=== PATIENT | female | born 2000 | race African-American/Black ===

== ENCOUNTER 2020-10-04 21:34 | Emergency (ER) | payer OTHER ==
[~2020-10-04] VITALS: Ht 162.6 cm; Wt 76.2 kg
[2020-10-04 21:57] LABS: URINE PREG TEST NEGATIVE (NEGATIVE)
[2020-10-04] MEDS ORDERED: BACT800T5 PO (22:42)
[2020-10-04] MEDS ORDERED: BACTRIM 160MG/800MG DS TAB PO ONE (22:45)
[2020-10-04 23:01] VITALS: BP 142/75
== END 2020-10-04 23:03 | disposition home or self-care (01) ==
LOC: M ED 21:34 → EDSEX 21:34 → M ED 23:03
DX: N30.00 Acute cystitis without hematuria (principal)

== ENCOUNTER 2020-10-21 11:42 | Emergency (ER) | payer OTHER ==
[~2020-10-21] VITALS: Ht 162.6 cm; Wt 74.5 kg
[~2020-10-21 11:42] MED LIST: BACT800T5 PO
--- OUTSIDE RECORDS SUMMARY | 2020-10-21 11:49 | CCD ---
Author Author [facility] Organization [facility] Address Unknown Phone Unavailable Care Team Providers [employer] Name Role Phone GENO ENRIQUE MD Unavailable Unavailable GENO ENRIQUE MD Unavailable Unavailable Re-disclosure Warning The records that you are about to access may contain information from federally-assisted alcohol or drug abuse programs. If such information is present, then the following federally mandated warning applies: This information has been disclosed to you from records protected by federal confidentiality rules (42 CFR part 2). The federal rules prohibit you from making any further disclosure of this information unless further disclosure is expressly permitted by the written consent of the person to whom it pertains or as otherwise permitted by 42 CFR part 2. A general authorization for the release of medical or other information is NOT sufficient for this purpose. The Federal rules restrict any use of the information to criminally investigate or prosecute any alcohol or drug abuse patient.The records that you are about to access may contain highly sensitive health information, the redisclosure of which is protected by Article 27-F of the [facility] Public Health law. If you continue you may have access to information: Regarding HIV / AIDS; Provided by facilities licensed or operated by the [facility] Office of Mental Health; or Provided by the [facility] Office for People With Developmental Disabilities. If such information is present, then the following [facility] mandated warning applies: This information has been disclosed to you from confidential records which are protected by state law. State law prohibits you from making any further disclosure of this information without the specific written consent of the person to whom it pertains, or as otherwise permitted by law. Any unauthorized further disclosure in violation of state law may result in a fine or snf sentence or both. A general authorization for the release of medical or other information is NOT sufficient authorization for further disc losure. Encounters Encounter Providers Location Date Indications Data Source(s ) Outpatient Attender: GENO ENRIQUE MD 09/2019 01:12:00 PM EDT - 02/09/2020 02:12:00 PM EDT [facility] Patient discharged. Insurance Providers Payer name Policy type / Coverage type Policy ID Covered democrat ID Covered democrat's relationship to castaneda Policy Castaneda Plan Information [facility] ACTIVE DUTY [id number] SP [id number] [facility] HUMANA - O/P [id number] 18 [id number] Problems, Conditions, and Diagnoses Code Display Name Description Problem Type Effective Dates Data Source(s) N25421 Pain in left hip Pain in left hip Diagnosis 02/09/2020 01 :12:00 PM EDT [facility] [id number] Pain in right hip Pain in right hip Diagnosis 02/09/2020 01:12:00 PM EDT [facility] Results ID Date Data Source [id number] 02/10/2020 10:39:00 [place] [address] PHONE: [phone] FAX: [phone] Name .................. : THI Steve Acct Number.................. : [id number] ROOM. ................. : Number ................... : [id number] Stay type ............. : O/P Discharge Date......... ... : 02/09/20 Admit Date ....... .. : 02/09/20 Admit Phys .................... : IVA MUÑOZ Date of ....... : 2000 Family Phys ................... : UNKNOWN CO Phone .................. : [phone] Age ................................ : 19 Film# .................. .:[id number] Sex ................................. : F Unsigned transcriptions are preliminary reports and do not represent a medical or legal document MRI LOWER EXT ANY JT W CONT [id number] COMPLETE:02/09/20 14:45 [facility] 56436 (REASON FOR PROCESS: PAIN MRI OF THE LEFT HIP WITH CONTRAST: INDICATION: Pain. FINDINGS: There is no evidence of fracture or dislocation. There is no abnormal bone marrow signal visualized. The joint space is well preserved. No focal hyaline cartilage defect. There is no evidence of a labral tear. No muscular tear or contusion. No evidence of ligamentous injury or capsular injury. IMPRESSION: Essentially normal left hip MR arthrogram. Electronically Reviewed and Signed By Dieudonne Jensen M.D. , 02/10/20 10:39, [facility] Transcribe Initials: SUHA , Transcribe Date: 02/09/20 21:55, Dictation Date: Copy for: IVA LORA Copy for: [address] [place] [address] REC Page 1 of 1 Name Value Range Interpretation Code Description Data Latanya rce(s) Supporting Document(s) ID Date Data Source [id number] 02/10/2020 10:38:00 AM EDT [facility] [address] [place] [address] PHONE: [phone] FAX: [phone] Name .................. : THI Steve Acct Number.................. : [id number] ROOM. ................. : MR Number ................... : [id number] Stay type ............. : O/P Discharge Date......... ... : 02/09/20 Admit Date ....... .. : 02/09/20 Admit Phys .................... : ENRIQUE COR Date of ....... : 2000 Family Phys ................... : UNKNOWN CO Phone .................. : [phone] Age ................................ : 19 Film# .................. .:[id number] Sex ................................. : F Unsigned transcriptions are preliminary reports and do not represent a medical or legal document MRI LOWER EXT ANY JT W CONT R [id number] COMPLETE:02/09/20 15:06 [facility] 78864 (REASON FOR PROCESS: PAIN MRI OF THE RIGHT HIP WITH CONTRAST: INDICATION: Pain. FINDINGS: There is no evidence of fracture or dislocation. There is no abnormal bone marrow signal visualized. The joint space is well preserved. No focal hyaline cartilage defect. There is no evidence of a labral tear. No muscular tear or contusion. No evidence of ligamentous injury or capsular injury. IMPRESSION: Essentially normal right hip MR arthrogram. Electronically Reviewed and Signed By Dieudonne Jensen M.D. , 02/10/20 10:38, [facility] Transcribe Initials: DZ , Transcribe Date: 02/09/20 21:53, Dictation Date: Copy for: IVA LORA Copy for: [address] [place] [address] REC Page 1 of 1 Name Value Range Interpretation Code Description Data Latanya rce(s) Supporting Document(s) ID Date Data Source [id number] 02/10/2020 09:51:00 AM EDT [facility] [address] [place] [address] PHONE: [phone] FAX: [phone] Name .................. : THI Steve Acct Number.................. : [id number] ROOM. ................. : MR Number ................... : [id number] Stay type ............. : O/P Discharge Date......... ... : 02/09/20 Admit Date ....... .. : 02/09/20 Admit Phys .................... : ENRIQUE WANDA Date of ....... : 2000 Family Phys ................... : UNKNOWN CO Phone .................. : [phone] Age ................................ : 19 Film# .................. .:[id number] Sex ................................. : F Unsigned transcriptions are preliminary reports and do not represent a medical or legal document INJECTION FOR HIP ARTHROGRAM [id number] COMPLETE:02/09/20 13:20 81519 REASON FOR EXAM: PAIN INJECTION FOR HIP ARTHROGRAM [id number] COMPLETE:02/09/20 13:20 57215 REASON FOR EXAM: PAIN FLUOROSCOPIC EXAMINATION OF THE BILATERAL HIPS FOR ARTHROGRAM, 02/09/20: PROCEDURE: The benefits and risks of the examination were discussed with the patient. The patient has given informed consent for the procedure. A time out was performed confirming the bilateral hips are the proper hip for today's examination. The skin surface was marked using fluoroscopic guidance. The skin was prepped and dressed in normal sterile fashion. Superficial and deep Lidocaine administration was performed with a 25-gauge needle. A 22- gauge spinal needle was then placed and advanced under fluoroscopic guidance. The needle was passed into the joint space at which time iodinated contrast was administered to confirm proper placement. Approximately 5 cc of iodinated contrast was administered. Once the proper placement was confirmed, approximately 10 cc of 1:200 Gadolinium solution was administered. The needle was then removed. The skin was cleansed and bandaged. No complications were experienced during the procedure. Seven images were obtained and fluoro time was 6 seconds. Examination dictated by SARA Sheffield. Examination was reviewed with Gurwinder Bennett MD, radiologist at the time of this dictation. Page [address] of 2 [place] [address] PHONE: [phone] FAX: [phone] [facility] .................. : [id number] ROOM. ................. : Number ................... : [id number] Stay type ............. : O/P Discharge Date......... ... : 02/09/20 Admit Date ......... : 02/09/20 Admit Phys .................... : IVA MUÑOZ Date of ....... : 2000 Family Phys ................... : UNKNOWN CO Phone .................. : [phone] Age ................................ : 19 Film# .................. .:[id number] Sex ................................. : F Unsigned transcriptions are preliminary reports and do not represent a medical or legal document INJECTION FOR HIP ARTHROGRAM [id number] COMPLETE:02/09/20 13:20 34325 REASON FOR EXAM: PAIN INJECTION FOR HIP ARTHROGRAM 98544 COMPLETE:02/09/20 13:20 72083 REASON FOR EXAM: PAIN Electronically Reviewed and Signed By GURWINDER BENNETT MD , 02/10/20 09:51, [facility] Transcribe Initials: SSR, Transcribe Date: 02/09/20 14:05, Dictation Date: Copy for: IVA LORA Copy for: [address] [place] [address] REC Page 2 of 2 Name Value Range Interpretation Code Description Data Latanya rce(s) Supporting Document(s) ID Date Data Source [id number] 02/10/2020 09:51:00 AM EDT [facility] [address] [place] [address] PHONE: [phone] FAX: [phone] Name .................. : THI MILENA Steve Acct Number.................. : [id number] ROOM. ................. : MR Number ................... : [id number] Stay type ............. : O/P Discharge Date......... ... : 02/09/20 Admit Date ....... .. : 02/09/20 Admit Phys .................... : ENRIQUE COR Date of ....... : 2000 Family Phys ................... : UNKNOWN CO Phone .................. : [phone] Age ................................ : 19 Film# .................. .:[id number] Sex ................................. : F Unsigned transcriptions are preliminary reports and do not represent a medical or legal document INJECTION FOR HIP ARTHROGRAM [id number] COMPLETE:02/09/20 13:20 32973 REASON FOR EXAM: PAIN INJECTION FOR HIP ARTHROGRAM 22596 COMPLETE:02/09/20 13:20 76921 REASON FOR EXAM: PAIN FLUOROSCOPIC EXAMINATION OF THE BILATERAL HIPS FOR ARTHROGRAM, 02/09/20: PROCEDURE: The benefits and risks of the examination were discussed with the patient. The patient has given informed consent for the procedure. A time out was performed confirming the bilateral hips are the proper hip for today's examination. The skin surface was marked using fluoroscopic guidance. The skin was prepped and dressed in normal sterile fashion. Superficial and deep Lidocaine administration was performed with a 25-gauge needle. A 22- gauge spinal needle was then placed and advanced under fluoroscopic guidance. The needle was passed into the joint space at which time iodinated contrast was administered to confirm proper placement. Approximately 5 cc of iodinated contrast was administered. Once the proper placement was confirmed, approximately 10 cc of 1:200 Gadolinium solution was administered. The needle was then removed. The skin was cleansed and bandaged. No complications were experienced during the procedure. Seven images were obtained and fluoro time was 6 seconds. Examination dictated by SARA Sheffield. Examination was reviewed with Gurwinder Benentt MD, radiologist at the time of this dictation. Page 1 of 2 [facility] [address] [place] [address] PHONE: [phone] FAX: [phone] Name .................. : THI Steve Acct Number.................. : [id number] ROOM. ................. : MR Number ................... : [id number] Stay type ............. : O/P Discharge Date......... ... : 02/09/20 Admit Date ......... : 02/09/20 Admit Phys .................... : IVA MUÑOZ Date of ....... : 2000 Family Phys ................... : UNKNOWN CO Phone .................. : [phone] Age ................................ : 19 Film# .................. .:[id number] Sex ................................. : F Unsigned transcriptions are preliminary reports and do not represent a medical or legal document INJECTION FOR HIP ARTHROGRAM 60915 COMPLETE:02/09/20 13:20 09135 REASON FOR EXAM: PAIN INJECTION FOR HIP ARTHROGRAM 14115 COMPLETE:02/09/20 13:20 04482 REASON FOR EXAM: PAIN Electronically Reviewed and Signed By GURWINDER BENNETT MD , 02/10/20 09:51, [facility] Transcribe Initials: SSR, Transcribe Date: 02/09/20 14:05, Dictation Date: Copy for: IVA LORA Copy for: [address] [place] [address] REC Page 2 of 2 Name Value Range Interpretation Code Description Data Latanya rce(s) Supporting Document(s) Procedure
--- OUTSIDE RECORDS SUMMARY | 2020-10-21 12:26 | CCD ---
Author Author [facility] Organization [facility] Address Unknown Phone Unavailable Care Team Providers [employer] Name Role Phone GENO ENRIQUE MD Unavailable [...] is protected by Article 27-F of the [place] Public Health law. If you continue you may have access to information: Regarding HIV / AIDS; Provided by facilities licensed or operated by the [facility] Office of Mental Health; or Provided by the [facility] Office for People With Developmental Disabilities. If such information is present, then the following [facility] mandated warning applies: This information has [...] law may result in a fine or assisted sentence or both. A general authorization for the release of medical or other information is NOT sufficient authorization for further disc losure. Encounters Encounter Providers Location Date Indications Data Source(s ) Outpatient Attender: GENO ENRIQUE MD 09/2019 01:12:00 PM EDT - 02/09/2020 02:12:00 PM EDT [facility] Patient discharged. Insurance Providers Payer name Policy type / Coverage type Policy ID Covered libertarian ID Covered libertarian's relationship to castaneda Policy Castaneda Plan Information [facility] ACTIVE DUTY [id number] SP [id number] [facility] HUMA[employer] - O/P [id number] 18 [id number] Problems, Conditions, and Diagnoses Code Display Name Description Problem Type Effective Dates Data Source(s) [id number] Pain in left hip Pain in left hip Diagnosis 02/09/2020 01 :12:00 PM EDT [facility] [id number] Pain in right hip Pain in right hip Diagnosis 02/09/2020 01:12:00 PM EDT [facility] Results ID Date Data Source [id number] 02/10/2020 10:39:00 [place] [address] PHONE: [phone] FAX: [phone] [facility] .................. [facility] [id number] ROOM. ................. : Number ................... : [id number] Stay type ............. : O/P Discharge Date......... ... : 02/09/20 Admit Date ....... .. : 02/09/20 Admit Phys .................... : IVA MUÑOZ Date of ....... : 2000 Family Phys ................... : UNKNOWN CO Phone .................. : [phone] Age ................................ : 19 Film# .................. .:[id number] Sex ................................. : F Unsigned transcriptions are preliminary reports and do not represent a medical or legal document MRI LOWER EXT ANY JT W CONT [id number] COMPLETE:02/09/20 14:45 [facility] 36623 (REASON FOR PROCESS: PAIN MRI OF THE [...] By Dieudonne Jensen M.D. , 02/10/20 10:39, [facility] Transcribe Initials: SUHA , Transcribe Date: 02/09/20 21:55, Dictation Date: Copy for: IVA LORA Copy for: [address] [place] [address] REC Page 1 of 1 Name Value Range Interpretation Code Description Data Latanya rce(s) Supporting Document(s) ID Date Data Source [id number] 02/10/2020 10:38:00 AM EDT [facility] [address] [place] [address] PHONE: [phone] FAX: [phone] Name .................. : THI Steve Acct Number.................. : [id number] ROOM. ................. : MR Number ................... : [id number] Stay type ............. : O/P Discharge Date......... ... : 02/09/20 Admit Date ....... .. : 02/09/20 Admit Phys .................... : ENRIQUE COR Date of ....... : 2000 Family Phys ................... : UNKNOWN CO Phone .................. : [phone] Age ................................ : 19 Film# .................. .:[id number] Sex ................................. : F Unsigned transcriptions are preliminary reports and do not represent a medical or legal document MRI LOWER EXT ANY JT W CONT R [id number] COMPLETE:02/09/20 15:06 [facility] 83519 (REASON FOR PROCESS: PAIN MRI OF THE [...] Date: Copy for: IVA LORA Copy for: [address] [place] [address] REC Page 1 of 1 Name Value Range Interpretation Code Description Data Latanya rce(s) Supporting Document(s) ID Date Data Source [id number] 02/10/2020 09:51:00 AM EDT [facility] [address] [place] [address] PHONE: [phone] FAX: [phone] Name .................. : THI Steve Acct Number.................. : [id number] ROOM. ................. : MR Number ................... : [id number] Stay type ............. : O/P Discharge Date......... ... : 02/09/20 Admit Date ....... .. : 02/09/20 Admit Phys .................... : ENRIQUE COR Date of ....... : 2000 Family Phys ................... : UNKNOWN CO Phone .................. : [phone] Age ................................ : 19 Film# .................. .:[id number] Sex ................................. : F Unsigned transcriptions are preliminary reports and do not represent a medical or legal document INJECTION FOR HIP ARTHROGRAM [id number] COMPLETE:02/09/20 13:20 73816 REASON FOR EXAM: PAIN INJECTION FOR HIP ARTHROGRAM 61896 COMPLETE:02/09/20 13:20 59619 REASON FOR EXAM: PAIN FLUOROSCOPIC EXAMINATION OF [...] of this dictation. Page 1 of 2 [facility] [address] [place] [address] PHONE: [phone] FAX: [phone] Name .................. : [facility] : [id number] ROOM. ................. : Number ................... : [id number] Stay type ............. : O/P Discharge Date......... ... : 02/09/20 Admit Date ......... : 02/09/20 Admit Phys .................... : IVA MUÑOZ Date of ....... : 2000 Family Phys ................... : UNKNOWN CO Phone .................. : [phone] Age ................................ : 19 Film# .................. .:[id number] Sex ................................. : F Unsigned transcriptions are preliminary reports and do not represent a medical or legal document INJECTION FOR HIP ARTHROGRAM [id number] COMPLETE:02/09/20 13:20 90255 REASON FOR EXAM: PAIN INJECTION FOR HIP ARTHROGRAM [id number] COMPLETE:02/09/20 13:20 23730 REASON FOR EXAM: PAIN Electronically Reviewed and Signed By GURWINDER BENNETT MD , 02/10/20 09:51, [facility] Transcribe Initials: SSR, Transcribe Date: 02/09/20 14:05, Dictation Date: Copy for: IVA LORA Copy for: [address] [facility] REC Page 2 of 2 Name Value Range Interpretation Code Description Data Latanya rce(s) Supporting Document(s) ID Date Data Source [id number] 02/10/2020 09:51:00 AM EDT [facility] [address] [place] [address] PHONE: [phone] FAX: [phone] Name .................. : THI Steve Acct Number.................. : [id number] ROOM. ................. : MR Number ................... : [id number] Stay type ............. : O/P Discharge Date......... ... : 02/09/20 Admit Date ....... .. : 02/09/20 Admit Phys .................... : ENRIQUE COR Date of ....... : 2000 Family Phys ................... : UNKNOWN CO Phone .................. : [phone] Age ................................ : 19 Film# .................. .:[id number] Sex ................................. : F Unsigned transcriptions are preliminary reports and do not represent a medical or legal document INJECTION FOR HIP ARTHROGRAM [id number] COMPLETE:02/09/20 13:20 47055 REASON FOR EXAM: PAIN INJECTION FOR HIP ARTHROGRAM 56325 COMPLETE:02/09/20 13:20 79772 REASON FOR EXAM: PAIN FLUOROSCOPIC EXAMINATION OF [...] of this dictation. Page 1 of 2 [facility] [address] [place] [address] PHONE: [phone] FAX: [phone] Name .................. : THI Steve Acct Number.................. : [id number] ROOM. ................. : MR Number ................... : [id number] Stay type ............. : O/P Discharge Date......... ... : 02/09/20 Admit Date ......... : 02/09/20 Admit Phys .................... : ENRIQUE COR Date of ....... : 2000 Family Phys ................... : UNKNOWN CO Phone .................. : [phone] Age ................................ : 19 Film# .................. .:[id number] Sex ................................. : F Unsigned transcriptions are preliminary reports and do not represent a medical or legal document INJECTION FOR HIP ARTHROGRAM 12383 COMPLETE:02/09/20 13:20 97018 REASON FOR EXAM: PAIN INJECTION FOR HIP ARTHROGRAM 24403 COMPLETE:02/09/20 13:20 09347 REASON FOR EXAM: PAIN Electronically Reviewed and Signed By GURWINDER BENNETT MD , 02/10/20 09:51, [facility] Transcribe Initials: SSR, Transcribe Date: 02/09/20 14:05, Dictation Date: Copy for: IVA LORA Copy for: [facility] MED REC Page 2 of 2 Name Value Range Interpretation Code Description Data Latanya rce(s) Supporting Document(s) Procedure
[2020-10-21 14:50] LABS: CHLAMYDIA DNA AMPLIFICATION NEGATIVE (NEGATIVE); GC DNA AMPLIFICATION NEGATIVE (NEGATIVE)
[2020-10-21 14:54] VITALS: BP 133/76
[2020-10-21] MEDS ORDERED: CEPH500T PO (15:00)
== END 2020-10-21 15:10 | disposition home or self-care (01) ==
LOC: M ED 11:42
DX: O23.11 Infections of bladder in pregnancy, first trimester (principal); Z3A.00 Weeks of gestation of pregnancy not specified

== ENCOUNTER 2020-10-25 15:12 | Emergency (ER) | payer OTHER ==
[~2020-10-25] VITALS: Ht 162.6 cm; Wt 77.5 kg
[~2020-10-25 15:12] MED LIST changes: +CEPH500T PO
--- OUTSIDE RECORDS SUMMARY | 2020-10-25 15:28 | CCD ---
Author Author [facility] Organization [facility] Address Unknown Phone Unavailable Care Team Providers Care Operations Specialist Name Role Phone GENO ENRIQUE MD Unavailable [...] is protected by Article 27-F of the [place] State Public Health law. If you continue you may have access to information: Regarding HIV / AIDS; Provided by facilities licensed or operated by the [facility] Office of Mental Health; or Provided by the [facility] Office for People With Developmental Disabilities. If such information is present, then the following [facility] mandated warning applies: This information has [...] law may result in a fine or senior living sentence or both. A general authorization for the release of medical or other information is NOT sufficient authorization for further disc losure. Encounters Encounter Providers Location Date Indications Data Source(s ) Outpatient Attender: GENO ENRIQUE MD 09/2019 01:12:00 PM EDT - 02/09/2020 02:12:00 PM EDT [facility] Patient discharged. Medications Medication Brand Name Start Date Product Form Dose Route Admi nistrative Instructions Pharmacy Instructions Status Indications Reaction Description Data Source(s) Cephalexin 500 MG Oral Capsule CEPHALEXIN 10/21/2020 12:00:00 AM EST capsule 20 TAKE ONE CAPSULE BY MOUTH TWICE A DAY TAKE ONE CAPSULE BY MO UTH TWICE A DAY SOLD: 10/21/2020 [facility] Insurance Providers Payer name Policy type / Coverage type Policy ID Covered republican ID Covered republican's relationship to castaneda Policy Castaneda Plan Information [facility] [employer] [id number] SP [id number] [facility] [employer] - O/P [id number] 18 [id number] Problems, Conditions, and Diagnoses Code Display Name Description Problem Type Effective Dates Data Source(s) K79787 Pain in left hip Pain in left hip Diagnosis 02/09/2020 01 :12:00 PM EDT [facility] [id number] Pain in right hip Pain in right hip Diagnosis 02/09/2020 01:12:00 PM EDT [facility] Results ID Date Data Source [id number] 10/18/2020 01:49:00 PM EST [facility] Name Value Range Interpretation Code Description Data Latanya rce(s) Supporting Document(s) SARS coronavirus 2 RNA Not Detected [facility] [place] This lab was ordered by [facility] and reported by [facility]. ID Date Data Source [id number] 02/10/2020 10:39:00 AM EDT [facility] [address] [place] [address] PHONE: [phone] FAX: [phone] Name .................. : THI Steve Acct Number.................. : [id number] ROOM. ................. : MR Number ................... : [id number] Stay type ............. : O/P Discharge Date......... ... : 02/09/20 Admit Date ....... .. : 02/09/20 Admit Phys .................... : ENRIQUE COR Date of ....... : 2000 Family Phys ................... : UNKNOWN CO Phone .................. : [phone] Age ................................ : 19 Film# .................. .:[id number] Sex ................................. : F Unsigned transcriptions are preliminary reports and do not represent a medical or legal document MRI LOWER EXT ANY JT W CONT [id number] COMPLETE:02/09/20 14:45 [facility] [id number] (REASON FOR PROCESS: PAIN MRI OF THE [...] By Dieudonne Jensen M.D. , 02/10/20 10:39, [facility] Transcribe Initials: DZ , Transcribe Date: 02/09/20 21:55, Dictation Date: Copy for: IVA LORA Copy for: [facility] REC Page 1 of 1 Name Value Range Interpretation Code Description Data Latanya rce(s) Supporting Document(s) ID Date Data Source [id number] 02/10/2020 10:38:00 AM EDT [facility] [address] [place] [address] PHONE: [phone] FAX: [phone] Name .................. : THI Steve Acct Number.................. : [id number] ROOM. ................. : Number ................... : [id number] Stay type ............. : O/P Discharge Date......... ... : 02/09/20 Admit Date ....... .. : 02/09/20 Admit Phys .................... : ENRIQUE WADNA Date of ....... : 2000 Family Phys ................... : UNKNOWN CO Phone .................. : [phone] Age ................................ : 19 Film# .................. .:[id number] Sex ................................. : F Unsigned transcriptions are preliminary reports and do not represent a medical or legal document MRI LOWER EXT ANY JT W CONT R [id number] COMPLETE:02/09/20 15:06 [facility] [id number] (REASON FOR PROCESS: PAIN MRI OF THE [...] By Dieudonne Jensen M.D. , 02/10/20 10:38, [facility] Transcribe Initials: SUHA , Transcribe Date: 02/09/20 21:53, Dictation Date: Copy for: IVA LORA Copy for: [address] [place] [address] REC Page 1 of 1 Name Value Range Interpretation Code Description Data Latanya rce(s) Supporting Document(s) ID Date Data Source [id number] 02/10/2020 09:51:00 [place] [address] PHONE: [phone] FAX: [phone] Name .................. : THI Steve Acct Number.................. : [id number] ROOM. ................. : Number ................... : [id number] Stay type ............. : O/P Discharge Date......... ... : 02/09/20 Admit Date ....... .. : 02/09/20 Admit Phys .................... : IVA MUÑOZ Date of ....... : 2000 Family Phys ................... : UNKNOWN CO Phone .................. : [phone] Age ................................ : 19 Film# .................. .:[id number] Sex ................................. : F Unsigned transcriptions are preliminary reports and do not represent a medical or legal document INJECTION FOR HIP ARTHROGRAM [id number] COMPLETE:02/09/20 13:20 09001 REASON FOR EXAM: PAIN INJECTION FOR HIP ARTHROGRAM [id number] COMPLETE:02/09/20 13:20 10979 REASON FOR EXAM: PAIN FLUOROSCOPIC EXAMINATION OF [...] of this dictation. Page 1 of 2 [place] [address] PHONE: [phone] FAX: [phone] Name .................. : THI tSeve Acct Number.................. : [id number] ROOM. ................. : MR Number ................... : [id number] Stay type ............. : O/P Discharge Date......... ... : 02/09/20 Admit Date ......... : 02/09/20 Admit Phys .................... : IVA MUÑOZ Date of ....... : 2000 Family Phys ................... : UNKNOWN CO Phone .................. : [phone] Age ................................ : 19 Film# .................. .:[id number] Sex ................................. : F Unsigned transcriptions are preliminary reports and do not represent a medical or legal document INJECTION FOR HIP ARTHROGRAM [id number] COMPLETE:02/09/20 13:20 [id number] REASON FOR EXAM: PAIN INJECTION FOR HIP ARTHROGRAM [id number] COMPLETE:02/09/20 13:20 [id number] REASON FOR EXAM: PAIN Electronically Reviewed and Signed By GURWINDER BENNETT MD , 02/10/20 09:51, [facility] Transcribe Initials: SSR, Transcribe Date: 02/09/20 14:05, Dictation Date: Copy for: IVA GEON Copy for: [facility] REC Page 2 of 2 Name Value Range Interpretation Code Description Data Latanya rce(s) Supporting Document(s) ID Date Data Source [id number] 02/10/2020 09:51:00 AM EDT [facility] [address] [place] [address] PHONE: [phone] FAX: [phone] Name .................. : THI Steve Acct Number.................. : [id number] ROOM. ................. : MR Number ................... : [id number] Stay type ............. : O/P Discharge Date......... ... : 02/09/20 Admit Date ....... .. : 02/09/20 Admit Phys .................... : ENRIQUE COR Date of ....... : 2000 Family Phys ................... : UNKNOWN CO Phone .................. : [phone] Age ................................ : 19 Film# .................. .:[id number] Sex ................................. : F Unsigned transcriptions are preliminary reports and do not represent a medical or legal document INJECTION FOR HIP ARTHROGRAM [id number] COMPLETE:02/09/20 13:20 [id number] REASON FOR EXAM: PAIN INJECTION FOR HIP ARTHROGRAM [id number] COMPLETE:02/09/20 13:20 21964 REASON FOR EXAM: PAIN FLUOROSCOPIC EXAMINATION OF [...] of this dictation. Page 1 of 2 [place] [address] PHONE: [phone] FAX: [phone] Name .................. : THISHEREEN Steve Acct Number.................. : [id number] ROOM. ................. : MR Number ................... : [id number] Stay type ............. : O/P Discharge Date......... ... : 02/09/20 Admit Date ......... : 02/09/20 Admit Phys .................... : IVA MUÑOZ Date of ....... : 2000 Family Phys ................... : UNKNOWN CO Phone .................. : [phone] Age ................................ : 19 Film# .................. .:[id number] Sex ................................. : F Unsigned transcriptions are preliminary reports and do not represent a medical or legal document INJECTION FOR HIP ARTHROGRAM [id number] COMPLETE:02/09/20 13:20 31611 REASON FOR EXAM: PAIN INJECTION FOR HIP ARTHROGRAM [id number] COMPLETE:02/09/20 13:20 32347 REASON FOR EXAM: PAIN Electronically Reviewed and Signed By GURWINDER BENNETT MD , 02/10/20 09:51, [facility] Transcribe Initials: SSR, Transcribe Date: 02/09/20 14:05, Dictation Date: Copy for: ENRIQUE GENO Copy for: [facility] MED REC Page 2 of 2 Name Value Range Interpretation Code Description Data Latanya rce(s) Supporting Document(s) Procedure
--- OUTSIDE RECORDS SUMMARY | 2020-10-25 17:15 | CCD ---
Author Author [facility] Organization [facility] Address Unknown Phone Unavailable Care Team Providers Care Gate Agent Name Role Phone GENO ENRIQUE MD Unavailable [...] is protected by Article 27-F of the [place] State Public Health law. If you continue you may have access to information: Regarding HIV / AIDS; Provided by facilities licensed or operated by the [facility] Office of Mental Health; or Provided by the [facility] Office for People With Developmental Disabilities. If such information is present, then the following [facility] mandated warning applies: This information has [...] law may result in a fine or custodial sentence or both. A general authorization for the release of medical or other information is NOT sufficient authorization for further disc losure. Encounters Encounter Providers Location Date Indications Data Source(s ) Outpatient Attender: GENO ENRIQUE MD 09/2019 01:12:00 PM EDT - 02/09/2020 02:12:00 PM EDT [facility] Patient discharged. Medications Medication Brand Name Start [...] type / Coverage type Policy ID Covered constitution party ID Covered constitution party's relationship to castaneda Policy Castaneda Plan Information [facility] ACTIVE DUTY [id number] SP [id number] [facility] HUMANA - O/P [id number] 18 [id number] Problems, Conditions, and Diagnoses Code Display Name Description Problem Type Effective Dates Data Source(s) [id number] Pain in left hip Pain in left hip [facility] Pain in right hip Pain in right hip Diagnosis 02/09/2020 01:12:00 PM EDT [facility] Results ID Date Data Source [id number] 10/18/2020 01:49:00 PM EST [facility] Name Value Range Interpretation Code Description Data Latanya rce(s) Supporting Document(s) SARS coronavirus 2 RNA Not Detected [facility] [place] This lab was ordered by [facility] and reported by [facility]. ID Date Data Source [id number] 02/10/2020 10:39:00 AM EDT [facility] [address] [place] [address] PHONE: [phone] FAX: [phone] Name .................. : THI Steve Acct Number.................. : [id number] ROOM. ................. : MR Number ................... : [id number] Stay type ............. : O/P Discharge Date......... ... : 02/09/20 Admit Date ....... .. : 02/09/20 Admit Phys .................... : ENRIQUE COR Date of ....... : 2000 Family Phys ................... : UNKNOWN CO Phone .................. : [phone] Age ................................ : 19 Film# .................. .:[id number] Sex ................................. : F Unsigned transcriptions are preliminary reports and do not represent a medical or legal document MRI LOWER EXT ANY JT W CONT [id number] COMPLETE:02/09/20 14:45 [facility] [id number] (REASON FOR PROCESS: PAIN MRI OF THE [...] Copy for: IVA LORA Copy for: Parish [facility] REC Page 1 of 1 Name Value Range Interpretation Code Description Data Latanya rce(s) Supporting Document(s) ID Date Data Source [id number] 02/10/2020 10:38:00 [place] [address] PHONE: [phone] FAX: [phone] Name .................. : THI PALILLE Power Acct Number.................. : [id number] ROOM. ................. : Number ................... : [id number] Stay type ............. : O/P Discharge Date......... ... : 02/09/20 Admit Date ....... .. : 02/09/20 Admit Phys .................... : IVA MUÑOZ Date of ....... : 2000 Family Phys ................... : UNKNOWN CO Phone .................. : [phone] Age ................................ : 19 Film# .................. .:[id number] Sex ................................. : F Unsigned transcriptions are preliminary reports and do not represent a medical or legal document MRI LOWER EXT ANY JT W CONT R [id number] COMPLETE:02/09/20 15:06 [facility] [id number] (REASON FOR PROCESS: PAIN MRI OF THE [...] By Dieudonne Jensen M.D. , 02/10/20 10:38, [facility] Transcribe Initials: SUAH , Transcribe Date: 02/09/20 21:53, Dictation Date: Copy for: IVA LORA Copy for: [address] [place] [address] REC Page 1 of 1 Name Value Range Interpretation Code Description Data Latanya rce(s) Supporting Document(s) ID Date Data Source [id number] 02/10/2020 09:51:00 [place] [address] PHONE: [phone] FAX: [phone] Name .................. : THI Steve Acct Number.................. : [id number] ROOM. ................. : Number ................... : [id number] Stay type ............. : O/P Discharge Date......... ... : 02/09/20 Admit Date ....... .. : 02/09/20 Admit Phys .................... : IVA MUÑOZ Date of ....... : 2000 Family Phys ................... : UNKNOWN CO Phone .................. : [phone] Age ................................ : 19 Film# .................. .:[id number] Sex ................................. : F Unsigned transcriptions are preliminary reports and do not represent a medical or legal document INJECTION FOR HIP ARTHROGRAM [id number] COMPLETE:02/09/20 13:20 49099 REASON FOR EXAM: PAIN INJECTION FOR HIP ARTHROGRAM [id number] COMPLETE:02/09/20 13:20 90657 REASON FOR EXAM: PAIN FLUOROSCOPIC EXAMINATION OF [...] of this dictation. Page 1 of 2 [place] [address] PHONE: [phone] FAX: [phone] Name .................. : THI Steve Acct Number.................. : [id number] ROOM. ................. : MR Number ................... : [id number] Stay type ............. : O/P Discharge Date......... ... : 02/09/20 Admit Date ......... : 02/09/20 Admit Phys .................... : IVA MUÑOZ Date of ....... : 2000 Family Phys ................... : UNKNOWN CO Phone .................. : [phone] Age ................................ : 19 Film# .................. .:[id number] Sex ................................. : F Unsigned transcriptions are preliminary reports and do not represent a medical or legal document INJECTION FOR HIP ARTHROGRAM [id number] COMPLETE:02/09/20 13:20 59530 REASON FOR EXAM: PAIN INJECTION FOR HIP ARTHROGRAM [id number] COMPLETE:02/09/20 13:20 59072 REASON FOR EXAM: PAIN Electronically Reviewed and Signed By GURWINDER BENNETT MD , 02/10/20 09:51, [facility] Transcribe Initials: SSR, Transcribe Date: 02/09/20 14:05, Dictation Date: Copy for: ENRIQUE GENO Copy for: [facility] MED REC Page 2 of 2 Name Value Range Interpretation Code Description Data Latanya rce(s) Supporting Document(s) ID Date Data Source [id number] 02/10/2020 09:51:00 AM EDT [facility] [address] [place] [address] PHONE: [phone] FAX: [phone] Name .................. : THI Steve Acct Number.................. : [id number] ROOM. ................. : MR Number ................... : [id number] Stay type ............. : O/P Discharge Date......... ... : 02/09/20 Admit Date ....... .. : 02/09/20 Admit Phys .................... : ENRIQUE COR Date of ....... : 2000 Family Phys ................... : UNKNOWN CO Phone .................. : [phone] Age ................................ : 19 Film# .................. .:[id number] Sex ................................. : F Unsigned transcriptions are preliminary reports and do not represent a medical or legal document INJECTION FOR HIP ARTHROGRAM [id number] COMPLETE:02/09/20 13:20 26768 REASON FOR EXAM: PAIN INJECTION FOR HIP ARTHROGRAM [id number] COMPLETE:02/09/20 13:20 55542 REASON FOR EXAM: PAIN FLUOROSCOPIC EXAMINATION OF [...] of this dictation. Page 1 of 2 [place] [address] PHONE: [phone] FAX: [phone] Name .................. : THISHEREEN Steve Acct Number.................. : [id number] ROOM. ................. : MR Number ................... : [id number] Stay type ............. : O/P Discharge Date......... ... : 02/09/20 Admit Date ......... : 02/09/20 Admit Phys .................... : VIA MUÑOZ Date of ....... : 2000 Family Phys ................... : UNKNOWN CO Phone .................. : [phone] Age ................................ : 19 Film# .................. .:[id number] Sex ................................. : F Unsigned transcriptions are preliminary reports and do not represent a medical or legal document INJECTION FOR HIP ARTHROGRAM [id number] COMPLETE:02/09/20 13:20 11692 REASON FOR EXAM: PAIN INJECTION FOR HIP ARTHROGRAM [id number] COMPLETE:02/09/20 13:20 77397 REASON FOR EXAM: PAIN Electronically Reviewed and Signed By GURWINDER BENNETT MD , 02/10/20 09:51, [facility] Transcribe Initials: SSR, Transcribe Date: 02/09/20 14:05, Dictation Date: Copy for: IVA LORA Copy for: [facility] MED REC Page 2 of 2 Name Value Range Interpretation Code Description Data Latanya rce(s) Supporting Document(s) Procedure
[2020-10-25 17:50] LABS: BASO % 0.4 % (0.0-1.0); EOS # 0.1 10^3/uL (0.0-0.5); EOS % 0.6 % (0.0-3.0); HEMATOCRIT 37.8 % (36.0-47.0); HEMOGLOBIN 12.2 g/dl (12.0-15.5); LYMPH # 1.7 10^3/uL (1.5-5.0); LYMPH % 20.6 % (24.0-44.0); MEAN CORPUSCULAR HEMOGLOBIN 28.4 pg (27.0-33.0); MEAN CORPUSCULAR HGB CONC 32.3 g/dl (32.0-36.5); MEAN CORPUSCULAR VOLUME 87.9 fl (80.0-96.0); MONO # 0.6 10^3/uL (0.0-0.8); MONO % 7.5 % (0.0-8.0); NEUTROPHILS % 70.5 % (36.0-66.0); PLATELET COUNT, AUTOMATED 257 10^3/uL (150-450); WHITE BLOOD COUNT 8.5 10^3/uL (4.0-10.0)
[2020-10-25 19:20] VITALS: BP 128/70
== END 2020-10-25 19:21 | disposition home or self-care (01) ==
LOC: M ED 15:12
DX: R10.30 Lower abdominal pain, unspecified (principal); Y04.8XXA Assault by other bodily force, initial encounter; Y92.9 Unspecified place or not applicable; Y93.9 Activity, unspecified; Y99.9 Unspecified external cause status

== ENCOUNTER 2020-11-23 18:57 | Emergency (ER) | payer OTHER ==
[~2020-11-23] VITALS: Ht 162.6 cm; Wt 79.7 kg
[2020-11-23 20:22] LABS: HEMATOCRIT 36.4 % (36.0-47.0); HEMOGLOBIN 11.8 g/dl (12.0-15.5); MEAN CORPUSCULAR HEMOGLOBIN 28.9 pg (27.0-33.0); MEAN CORPUSCULAR HGB CONC 32.4 g/dl (32.0-36.5); PLATELET COUNT, AUTOMATED 231 10^3/uL (150-450); RED BLOOD COUNT 4.09 10^6/uL (4.00-5.40)
[2020-11-23 20:47] LABS: HCG, SERUM QUALITATIVE POSITIVE (NEGATIVE)
[2020-11-23 21:02] LABS: ACETAMINOPHEN LEVEL < 2.0 UG/ML (10.0-30.0); ALBUMIN 3.7 GM/DL (3.2-5.2); ALT/SGPT 10 U/L (12-78); BILIRUBIN,DIRECT < 0.1 MG/DL (0.0-0.2); BILIRUBIN,TOTAL 0.2 MG/DL (0.2-1.0); BLOOD UREA NITROGEN 9 MG/DL (7-18); CALCIUM LEVEL 8.9 MG/DL (8.5-10.1); CARBON DIOXIDE LEVEL 25 MEQ/L (21-32); CHLORIDE LEVEL 105 MEQ/L (98-107); CREATININE FOR GFR 0.58 MG/DL (0.55-1.30); ETHYL ALCOHOL (ETHANOL) < 0.003 % (0.000-0.010); GLUCOSE, FASTING 92 MG/DL (70-100); POTASSIUM SERUM 3.8 MEQ/L (3.5-5.1); SALICYLATE LEVEL < 1.7 MG/DL (5.0-30.0); SODIUM LEVEL 135 MEQ/L (136-145)
[2020-11-23 21:50] VITALS: BP 125/70
== END 2020-11-23 21:50 | disposition home or self-care (01) ==
LOC: M ED 18:57
DX: O99.341 Other mental disorders complicating pregnancy, first trimester (principal); F33.9 Major depressive disorder, recurrent, unspecified; Z3A.10 10 weeks gestation of pregnancy

== ENCOUNTER 2020-12-29 09:35 | Emergency (ER) | payer OTHER ==
[~2020-12-29] VITALS: Ht 152.4 cm; Wt 79.9 kg
[2020-12-29] MEDS ORDERED: PREN1CHW6 PO (10:23)
[2020-12-29] MEDS ORDERED: BACITRACIN OINTMENT 30GM TUBE TOP STA (11:17)
[2020-12-29] MEDS ORDERED: BACI500O21 TOP (11:24)
[2020-12-29 11:36] VITALS: BP 116/66
== END 2020-12-29 12:12 | disposition home or self-care (01) ==
LOC: M ED 09:35
DX: O99.712 Diseases of the skin and subcutaneous tissue complicating pregnancy, second trimester (principal); L08.9 Local infection of the skin and subcutaneous tissue, unspecified; Z3A.15 15 weeks gestation of pregnancy

== ENCOUNTER 2021-01-01 16:05 | Emergency (ER) | payer OTHER ==
[~2021-01-01] VITALS: Ht 162.6 cm; Wt 76.8 kg
[~2021-01-01 16:05] MED LIST changes: +BACI500O21 TOP; +PREN1CHW6 PO
[2021-01-01 16:36] LABS: APPEARANCE, URINE CLEAR (CLEAR); BACTERIA, URINE AUTO NEGATIVE (NEGATIVE); BILIRUBIN, URINE AUTO NEGATIVE (NEGATIVE); BLOOD, URINE BLOOD NEGATIVE (NEGATIVE); COLOR, URINE YELLOW (YELLOW); GLUCOSE, URINE (UA) AUTO NEGATIVE (NEGATIVE); KETONE, URINE AUTO NEGATIVE (NEGATIVE); LEUKOCYTE ESTERASE, URINE AUTO TRACE (NEGATIVE); MUCUS, URINE SMALL (NEGATIVE); NITRITE, URINE AUTO NEGATIVE (NEGATIVE); PROTEIN, URINE AUTO NEGATIVE (NEGATIVE); RBC, URINE AUTO 0 /HPF (0-3); SPECIFIC GRAVITY URINE AUTO 1.025 (1.002-1.035); SQUAMOUS EPITHELIAL CELL UR AU 1 /HPF (0-6); UROBILINOGEN, URINE AUTO 0.2 mg/dL (0.0-2.0); WBC, URINE AUTO 18 /HPF (0-3)
[2021-01-01 18:38] LABS: CHLAMYDIA DNA AMPLIFICATION NEGATIVE (NEGATIVE); GC DNA AMPLIFICATION NEGATIVE (NEGATIVE)
[2021-01-01] MEDS ORDERED: MACR100C43 PO (19:05)
[2021-01-01] MEDS ORDERED: NITROFURANTOIN (MACROBID) 100 MG CAP PO ONE (19:05)
[2021-01-01 19:06] VITALS: BP 122/71
== END 2021-01-01 19:10 | disposition home or self-care (01) ==
LOC: M ED 16:05
DX: O23.40 Unspecified infection of urinary tract in pregnancy, unspecified trimester (principal); R30.0 Dysuria; Z3A.00 Weeks of gestation of pregnancy not specified

== ENCOUNTER 2021-02-09 19:32 | Outpatient (CLI) | payer OTHER ==
[~2021-02-09] VITALS: Ht 162.6 cm; Wt 77.2 kg
[~2021-02-09 19:32] MED LIST changes: +MACR100C43 PO
[2021-02-09 19:49] VITALS: BP 113/65
--- NOTE | 2021-02-09 20:39 | IPNPDOC ---
Text Note Date of Service The patient was seen on 02/09/21. NOTE HPI: Mrs. Amanda Anna is a 20-year-old G1 at 21w3d ega, by LMP consistent with first trimester ultrasound, with PNC c/b Frequent UTIs who presents to rule-out labor. Mrs. Anna presents reporting progressively worsening pain that she attributes to her hip bursitis. However, over the course of the day she has noticed lower abdominal/pelvic discomfort and dysuria. No exacerbating or relieving factors have been identified. The patient denies leakage of fluid and vaginal bleeding. She has not started feeling the baby move at this point in her . Denies urinary frequency/hematuria, vaginal itching/burning sensations, vaginal discharge, or fevers/chills. Past Medical History: - Hip bursitis Past Surgical History: - Negative. Medications: - vitamins. Allergies: - No Known Drug Allergies. OB History: - G1: current partner, spontaneous conception. 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 PHYSICAL EXAMINATION Vital signs: normotensive, afebrile. General: Awake, alert and oriented 3; No apparent distress. Abdomen: Gravid, soft, nondistended, nontender to palpation. Back: No CVA tenderness Lower Extremities: no clubbing, cyanosis or edema. Sterile Speculum Exam: cervix was visibly closed, with no vaginal bleeding or pooling of fluid. Foul smelling yellow/green discharge noted within the vault NST: Baseline 125 bpm, moderate variability [place]: No uterine contractions. Labs: UA: Negative Leukocyte Esterase; Negative Nitrites; Negative Urine Bacteria; + Ketones UCx: Pending NIECY: No budding hyphae or yeast Wet Prep: Multiple clue cells, no Trichomonas present. Gonorrhea/Chlamydia/Trich NAAT: Pending Assessment: 20-year-old 1 at 21w3d ega with evidence of vaginitis & dehydration. Will initiate treatment for vaginitis. Will po hydrate the patient. Plan: Flagyl (metronidazole) 500 mg by mouth twice a day 7 days for bacterial vaginosis. Patient is to follow-up at her next regularly scheduled OB appointment. - Return precautions were reviewed with the couple All questions answered. 30 minutes spent in counseling. 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 Feb 09, 2021 20:39
== END 2021-02-09 20:49 | disposition home or self-care (01) ==
LOC: M LDO 19:32
PROVIDERS: ATTEND Obstetrics & Gynecology Reproductive Endocrinology
DX: O23.593 Infection of other part of genital tract in pregnancy, third trimester (principal); Z3A.21 21 weeks gestation of pregnancy; M70.70 Other bursitis of hip, unspecified hip; O26.893 Other specified pregnancy related conditions, third trimester
CPT/HCPCS: 81001; 87490; 87590; 87661; G0378; G0463

== ENCOUNTER 2021-03-14 17:46 | Emergency (ER) | payer OTHER ==
[~2021-03-14] VITALS: Ht 162.6 cm; Wt 80.4 kg
[2021-03-14] MEDS ORDERED: MULTTAB20 PO (19:19)
[2021-03-14] MEDS ORDERED: MACR100C43 PO (19:24)
[2021-03-14 19:42] LABS: HEMATOCRIT 32.2 % (36.0-47.0); HEMOGLOBIN 10.5 g/dl (12.0-15.5); MEAN CORPUSCULAR HEMOGLOBIN 29.3 pg (27.0-33.0); MEAN CORPUSCULAR HGB CONC 32.6 g/dl (32.0-36.5); MEAN CORPUSCULAR VOLUME 89.9 fl (80.0-96.0); PLATELET COUNT, AUTOMATED 231 10^3/uL (150-450); RED BLOOD COUNT 3.58 10^6/uL (4.00-5.40); WHITE BLOOD COUNT 8.7 10^3/uL (4.0-10.0)
[2021-03-14 20:13] LABS: AMPHETAMINES LEVEL URINE NEGATIVE (NEGATIVE); BARBITURATES URINE NEGATIVE (NEGATIVE); BENZODIAZEPINES URINE NEGATIVE (NEGATIVE); CANNABINOIDS URINE NEGATIVE (NEGATIVE); COCAINE METABOLITE URINE NEGATIVE (NEGATIVE); METHADONE URINE NEGATIVE (NEGATIVE); OPIATES URINE NEGATIVE (NEGATIVE); PHENCYCLIDINE URINE NEGATIVE (NEGATIVE)
[2021-03-14 20:24] LABS: ACETAMINOPHEN LEVEL < 2.0 UG/ML (10.0-30.0); ALBUMIN 3.4 GM/DL (3.2-5.2); ALT/SGPT 11 U/L (12-78); BILIRUBIN,DIRECT < 0.1 MG/DL (0.0-0.2); BILIRUBIN,TOTAL 0.3 MG/DL (0.2-1.0); BLOOD UREA NITROGEN 8 MG/DL (7-18); CALCIUM LEVEL 8.7 MG/DL (8.5-10.1); CARBON DIOXIDE LEVEL 25 MEQ/L (21-32); CHLORIDE LEVEL 107 MEQ/L (98-107); CREATININE FOR GFR 0.37 MG/DL (0.55-1.30); ETHYL ALCOHOL (ETHANOL) < 0.003 % (0.000-0.010); GLUCOSE, FASTING 67 MG/DL (70-100); SALICYLATE LEVEL < 1.7 MG/DL (5.0-30.0); SODIUM LEVEL 137 MEQ/L (136-145); THYROID STIMULATING HORMONE 0.869 uIU/ML (0.463-3.98); TOTAL PROTEIN 6.8 GM/DL (6.4-8.2)
[2021-03-14 21:07] LABS: HCG, SERUM QUALITATIVE POSITIVE (NEGATIVE)
[2021-03-15 09:15] VITALS: BP 122/52
== END 2021-03-15 09:17 | disposition home or self-care (01) ==
LOC: M ED 17:46
DX: O99.342 Other mental disorders complicating pregnancy, second trimester (principal); F43.21 Adjustment disorder with depressed mood; Z3A.27 27 weeks gestation of pregnancy

== ENCOUNTER 2021-04-14 18:36 | Emergency (ER) | payer OTHER ==
[~2021-04-14] VITALS: Ht 162.6 cm; Wt 81.4 kg
[~2021-04-14 18:36] MED LIST changes: +MULTTAB20 PO
[2021-04-14] MEDS ORDERED: NITR100C2 (18:51)
[2021-04-14] MEDS ORDERED: FERR325T18 (18:51)
[2021-04-14 21:54] VITALS: BP 131/64
== END 2021-04-14 22:10 | disposition home or self-care (01) ==
LOC: M ED 18:36
DX: O99.513 Diseases of the respiratory system complicating pregnancy, third trimester (principal); J06.9 Acute upper respiratory infection, unspecified; Z20.822 Contact with and (suspected) exposure to COVID-19; Z3A.30 30 weeks gestation of pregnancy
CPT/HCPCS: 99283; U0003

== ENCOUNTER 2021-04-19 15:37 | Outpatient (CLI) | payer OTHER ==
[~2021-04-19] VITALS: Ht 162.6 cm; Wt 82.0 kg
[~2021-04-19 15:37] MED LIST changes: +FERR325T18; +NITR100C2
[2021-04-19] MEDS ORDERED: HOME MED LIST COMPLETE! XX SCH (16:00)
[2021-04-19 16:19] VITALS: BP 125/67
--- NOTE | 2021-04-19 17:31 | IPNPDOC ---
Obstetrical Progress Note Date of Service Apr 19, 2021 Subjective 20 yo g1 @ 31w2d who presents complaining of uti symptoms with burning when she voids, urgency anf frequency. reports that she has hx of reccurent UTI and was told to take macrobid every day until she delivers. reports that after her 28 week appointment someone called her and told her to stop taking microbid and they would give her a new presciption for a different drug, but when she went to pick it up these was nothing at the harmacy. patient reports that she then went on vacation out of town for 2 weeks and did not take any meciation. when she returned she started having UTI symptoms and she resumed taking the macrobid once a day. she has been doing that now for a week and she continues to have the symptoms. she denies an fevers, chills, nausea or vomiting. she has no other concerns. FHT: 145, MOD KARIS,+Accels--CAT I tracing SVE: DEFFERED [place]: no contractions labs ua and UC: sent EXAM Normal vitals no suprapubic or CVA tenderness A/P 20 yo g1 @ 31w2d who presents complaining of uti symptoms after skin two weeks of her prophylactic dose. hemodynamically stable. normal vitals and reactive NST. WILL Sent home on macrobid 100mg BID FOR 7 DAays, then can go back on daily macrobid for supression. will await UC and will change antibioics as indicated by the the culture. f/u with DANIEL jansen previously scheduled. Objective Vital Signs Date Time Temp Pulse Resp B/P (MAP) Pulse Ox O2 Delivery O2 Flow Rate FiO2 04/19/21 16:19 97.4 70 18 125/67 (86) Room Air OMKAR ABEL MD Apr 19, 2021 17:31
[2021-04-19] MEDS ORDERED: MACR100C43 PO (17:34)
[2021-04-19 17:36] LABS: APPEARANCE, URINE CLEAR (CLEAR); BACTERIA, URINE AUTO NEGATIVE (NEGATIVE); BILIRUBIN, URINE AUTO NEGATIVE (NEGATIVE); BLOOD, URINE BLOOD NEGATIVE (NEGATIVE); COLOR, URINE YELLOW (YELLOW); GLUCOSE, URINE (UA) AUTO NEGATIVE (NEGATIVE); KETONE, URINE AUTO NEGATIVE (NEGATIVE); LEUKOCYTE ESTERASE, URINE AUTO 1+ (NEGATIVE); MUCUS, URINE SMALL (NEGATIVE); NITRITE, URINE AUTO NEGATIVE (NEGATIVE); PROTEIN, URINE AUTO NEGATIVE (NEGATIVE); RBC, URINE AUTO 1 /HPF (0-3); SPECIFIC GRAVITY URINE AUTO 1.008 (1.002-1.035); SQUAMOUS EPITHELIAL CELL UR AU 2 /HPF (0-6); UROBILINOGEN, URINE AUTO 0.2 mg/dL (0.0-2.0); WBC, URINE AUTO 1 /HPF (0-3)
== END 2021-04-19 17:20 | disposition home or self-care (01) ==
LOC: M LDO 15:37
PROVIDERS: ATTEND Registered Nurse Maternal Newborn
DX: O23.43 Unspecified infection of urinary tract in pregnancy, third trimester (principal); Z3A.31 31 weeks gestation of pregnancy
CPT/HCPCS: 59025; 81001; 87086; G0378; G0463

== ENCOUNTER 2021-06-19 08:50 | Outpatient (CLI) | payer OTHER ==
[~2021-06-19] VITALS: Ht 162.6 cm; Wt 83.1 kg
[2021-06-19] MEDS ORDERED: HOME MED LIST COMPLETE! XX SCH ×2 (09:05)
[2021-06-19 09:09] VITALS: BP 147/87
--- NOTE | 2021-06-19 17:13 | HPE ---
HISTORY AND PHYSICAL DATE OF ADMISSION: 06/19/2021 HISTORY OF PRESENT ILLNESS: This lady is a 20-year-old 1, para 0, last menstrual period (LMP) was September 12, 2020, estimated date of confinement by early ultrasound of 9 weeks 1 day, is June 19, 2021. She is at 40 weeks of gestation with having irregular contractions. She is booked for induction of labor 06/26/2021. RISK FACTORS: She has frequent urinary tract infections and she is on Macrobid daily. She has gestational anemia and she is GBS positive. PHYSICAL EXAMINATION: On examination, does not appear in any distress. Symphysis fundus height is 40, vertex presenting. Category 1 strip with moderate variability and minimal contractions. Pelvic examination: The cervix is very posterior, 1 cm, minus 3 station, but 80% efface. No vaginal bleeding and no discharge. ASSESSMENT AND PLAN: She was counseled regarding premature rupture of membranes, bleeding, contractions 5 to 7 minutes apart, moderate intensity, when to call provider in order for her to be coming in for labor, otherwise to keep her induction of labor for 06/26/2021. She was maintained on a monitor for an hour. There is no evidence for change. The patient expressed understanding of the plan of care. She was discharged undelivered to follow up with us as per protocol. On discharge, she was afebrile. Blood pressure was within normal limits, pulse and respirations. The patient plans on returning when in active labor. [facility]
== END 2021-06-19 10:10 | disposition home or self-care (01) ==
LOC: M LDO 08:50
PROVIDERS: ATTEND Obstetrics & Gynecology
DX: O60.03 Preterm labor without delivery, third trimester (principal); Z3A.40 40 weeks gestation of pregnancy; O48.0 Post-term pregnancy; O99.013 Anemia complicating pregnancy, third trimester; O99.820 Streptococcus B carrier state complicating pregnancy
CPT/HCPCS: 59025; G0378; G0463

== ENCOUNTER 2021-06-19 22:54 | Inpatient (IN) | payer OTHER ==
[~2021-06-19] VITALS: Ht 162.6 cm; Wt 84.0 kg
[2021-06-19] MEDS ORDERED: PENICILLIN G POTASSIUM IV 5 MU in D5W MINI-BAG PLUS 100 ML IV STA (23:31)
[2021-06-19] MEDS ORDERED: OXYTOCIN DRIP 30 UNITS in IV 1 EA IV PRN ×4 (23:35)
[2021-06-19] MEDS: LR 1,000 ML IV SCH (23:35)
[2021-06-19] MEDS ORDERED: OXYTOCIN INJ 10 UNITS/ML VIAL (J2590) IV PRN (23:35)
[2021-06-19] MEDS ORDERED: METHYLERGONOVINE MALEATE 0.2 MG/ML VIAL (J2210) IM PRN (23:35)
[2021-06-19] MEDS ORDERED: LACTATED RINGER'S 1000 ML IV ONE (23:35)
[2021-06-19 23:39] VITALS: BP 127/76
[2021-06-20] VITALS (71 sets, daily range): BP systolic 106–213; BP diastolic 53–127
[2021-06-20 00:17] LABS: HEMATOCRIT 31.2 % (36.0-47.0); HEMOGLOBIN 9.8 g/dl (12.0-15.5); MEAN CORPUSCULAR HEMOGLOBIN 25.7 pg (27.0-33.0); MEAN CORPUSCULAR HGB CONC 31.4 g/dl (32.0-36.5); MEAN CORPUSCULAR VOLUME 81.7 fl (80.0-96.0); PLATELET COUNT, AUTOMATED 224 10^3/uL (150-450); RED BLOOD COUNT 3.82 10^6/uL (4.00-5.40); WHITE BLOOD COUNT 11.7 10^3/uL (4.0-10.0)
--- NOTE | 2021-06-20 00:23 | HPEPDOC ---
Obstetrical History & Physical General Date of Admission Jun 19, 2021 at 23:25 Primary Care Physician: Tani Vance MD History of Present Illness Vital Signs Label Value Date Time Patient Temperature 98.6 degrees F 06/19/212338 Temperature Source Temporal 06/19/212338 Pulse 77 06/19/212338 Respiratory Rate 18 bpm 06/19/212338 Blood Pressure Assessment 127/76 (93) 06/19/212338 Source Automatic Cuff (NIBP) Item Value Date Time White Blood Count 11.7 10^3/uL H 06/19/21 232 Red Blood Count 3.82 10^6/uL L 06/19/21 232 Hemoglobin 9.8 g/dl L 06/19/212328 Hematocrit 31.2 % L 06/19/212328 Mean Corpuscular Volume 81.7 fl 06/19/212328 Mean Corpuscular Hemoglobin 25.7 pg L 06/19/212328 Mean Corpuscular Hemoglobin Concent 31.4 g/dl L 06/19/212328 Red Cell Distribution Width 13.2 % 06/19/212328 Platelet Count 224 10^3/uL 06/19/21 2329 06/19/21 20 YO AT 40 WEEKS CONTRACTIONS Q 5 MINUTES MODERATE INTENSITY MUCUS DISCHARGE GBS POSITIVE Chief Complaint: Contractions, term Information Provided By: Patient Age: 20 : 1 Term: 0 Pre-term: 0 Abortions: 0 Livin Care Care: Good Care Number of Visits: 9 Dating Final EDC: Jun 19, 2021 Final EDC for Daily Update: Jun 19, 2021 Final EDC by: LMP LMP: Sep 12, 2020 1st Trimester Date: January 31, 2021 Weeks + Days: 12.1 Estimated Date of Confinement: Jun 19, 2021 EGA at Admission: 40 Antepartum Course Diagnos(e)s SPONTANEOUS LABOR AT TERM GBS POSITIVE Height (inches): 64 Pre- weight (lbs.): 178 Admission Weight (lbs.): 185 Change in Weight (lbs.): 7 Past Medical History Past Obstetrical History : Past Obstetrical History: [employer]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 Past Medical History Medical History ANEMIA Surgical History: Denies/None Family History Significant Family History: Cancer (DIABETES) Family History GRAND MERE BREAST CANCER GRAND FATHER DIABETES Social History Social history NON SMOKER ACTIVE DUTY NO VIOLENCE Marital Status: Family situation: Spouse/partner home Psychosocial History: No pertinent psych hx * Smoker: non-smoker Alcohol: Denies Drugs: denies Abuse Violence Screening Have you been hit/kicked/slapp: No Have you been sexually assault: No Imunizations Tdap status: current Influenza Status: current Allergies Coded Allergies: No Known Allergies (Unverified , 10/04/20) Medications Scheduled Nitrofurantoin Monohyd/M-Cryst (Macrobid 100 mg Capsule) 100 Mg Capsule, 100 MG PO BID Physical Examination Physical Examination GENERAL: Alert and oriented times three. BREAST: . ABDOMEN: Gravid and non-tender to touch. FETUS: Is vertex (VTX) by sterile vaginal examination (SVE), fetus is vertex (VTX) by [facility]. HEART RATE: Regular rate and rhythm. LUNGS: Clear to auscultation (CTA). EXTREMITIES: No edema. No clonus. Deep tendon reflexes (DTRs) + . Other physical findings NORMOCEPHALIC PERRLA CHEST CLEAR TO BASES NO HEART MURMUR NO RUBS OR CLICKS NO SOB NO RASHES LESIONS OR PURITIES NO ARTHRALGIA MYALGIA NO JOINT PAIN NO URGENCY FREQUENCY NO NAUSEA VOMITING DIARRHEA CONSTIPATION Laboratory Data 24H LABS Laboratory Tests 2 06/19/21 23:30: Serology Scanned Report Hepatitis B Testing Urine Culture: No Growth Pertinent Laboratoy Data Blood Type: O+ RBC Antibody Screen: Negative HIV: Negative Hepatitis B: Negative Rapid Plasma Reagin: Nonreactive Rubella: Immune Varicella: Immune Chlamydia/Gonorrhea: Negative Group B Streptococcus: Positive Cystic Fibrosis: Negative Glucose Tolerance Test: 99 Anatomy Ultrasound Ultrasound Date: Feb 28, 2021 Placenta Location: Anterior Normal Anatomy: Yes Estimated Weight (grams): 340 Steroid Therapy Steroid Therapy: No Vaginal Examination Dilation: 4 cm Effacement: 70% Station: -2 Cervical Consistency: Soft Cervical Position: Middle Presentation: Cephalic presentation Assessment Variability: Moderate Accelerations: Present Decelerations: None Tocometer Contractions: Yes Frequency: every 1-3 min. Duration: less than 60 seconds Strength: palpated as moderate Assessment/Plan Assessment 20-year-old (G)1 para (P0 at 40 weeks by 9.1 week ultrasound. Presents to Labor and Delivery (L&D) ACTIVE GBS POSITIVE Plan Admit and orient. Clerk Funeral Detail and consent. Diet: NPO Group B Streptococcus (GBS) [POSITIVE ]. Labs and intravenous (IV) per unit protocol. Counseled on Pitocin and induction of labor (IOL). Lactated Ringers (LR): Bolus 1000 mL, then at 125 mL/hr. Anticipate [normal spontaneous delivery ()]. C-S as appropriate. Labor and Delivery Counseling REVIEWED VAGINAL DELIVERY WITH POSSIBLE LACERATIONS AND REQUIRED REPAIR OF VAGINA URETHRA BOWEL BLADDER RECTUM USE OF FORCEPS OR VACUUM IF OR MATERNAL INDICATIONS POSSIBLE CEPHALOHEMATOMA BRUISING OR LACERATIONS ADMISSION TO NICU POSSIBLE NEED FOR EMERGENCY CS FOR MATERNAL OR INDICATIONS IF REMOTE FROM DELIVERY. RISK INCLUDE HEMORRHAGE INFECTION PERFORATION REOPERATION REMOTE BLOOD TRANSFUSION REMOTE HYSTERECTOMY LIFE THREATENING BLEEDING EXPRESSED UNDERSTANDING SAFE TO PROCEED Tani Vance MD Jun 19, 2021 23:52
[2021-06-20] MEDS ORDERED: FENTANYL 2MCG/ML ROPIVACAINE 0.2% IN 0.9% NACL 100ML IVBAG As Ordered ONE (00:27)
[2021-06-20] MEDS ORDERED: diphenhydrAMINE 50MG/ML VIAL (J1200) IV PRN (01:25)
[2021-06-20] MEDS ORDERED: ePHEDrine SULFATE 25 MG/5 ML(5MG/ML) SYRINGE IV PRN (01:25)
[2021-06-20] MEDS ORDERED: EPIDURAL COMMENT XX SCH (01:25)
[2021-06-20] MEDS ORDERED: NALOXONE INJ 0.4MG/1ML VIAL (J2310 PER 1MG) IV PRN (01:25)
[2021-06-20] MEDS ORDERED: ONDANSETRON 4MG/2ML VIAL IV PRN (01:25)
[2021-06-20] MEDS ORDERED: LACTATED RINGER'S 1000 ML IV PRN (01:25)
[2021-06-20] MEDS ORDERED: FENTANYL/ROPIVACAINE/NACL BAG 100 ML EPIDURAL SCH (01:25)
[2021-06-20] MEDS ORDERED: EPIDURAL/PCA KEYS XX PRN (01:25)
[2021-06-20] MEDS ORDERED: REFRIGERATOR IV KEYS XX PRN (01:25)
[2021-06-20] MEDS ORDERED: LABETALOL 100MG/20ML VIAL As Ordered ONE (01:36)
[2021-06-20] MEDS ORDERED: LABETALOL 100MG/20ML VIAL IV STA ×4 (01:37→04:40)
[2021-06-20] MEDS ORDERED: OXYTOCIN 30 UNITS IN 0.9% NaCl 500ML IV BAG (J2590) As Ordered ONE (02:32)
[2021-06-20 02:55] LABS: ALT/SGPT 8 U/L (12-78); BILIRUBIN,TOTAL 0.5 MG/DL (0.2-1.0); CREATININE FOR GFR 0.51 MG/DL (0.55-1.30); LDH LACTATE DEHYDROGENASE 171 U/L (84-246); URIC ACID 3.5 MG/DL (2.6-6.0)
[2021-06-20 03:17] LABS: CREATININE,RANDOM URINE 78.2 MG/DL; TOTAL PROTEIN,RANDOM URINE 20.7 MG/DL (0.0-12.0)
[2021-06-20] MEDS ORDERED: PENICILLIN G POTASSIUM IV 2.5 MU in IV 1 EA IV SCH (04:00)
[2021-06-20] MEDS ORDERED: MAGNESIUM *L&D* 4GM/100ML BAG (40MG/ML) IV ONE (04:15)
[2021-06-20] MEDS ORDERED: RHOGAM 300 MCG (1500 IU) INJ (J2790) IM SCH (04:20)
[2021-06-20] MEDS ORDERED: OXYTOCIN INJ 10 UNITS/ML VIAL (J2590) IV ONE (04:20)
[2021-06-20] MEDS ORDERED: MEASLES,MUMPS,RUBELLA VACCINE INJ (MMR-II) (90707) SC SCH (04:20)
[2021-06-20] MEDS ORDERED: DIBUCAINE 1% OINTMENT 30GM TOP PRN (04:20)
[2021-06-20] MEDS ORDERED: OXYTOCIN DRIP 30 UNITS in IV 1 EA IV SCH (04:20)
[2021-06-20] MEDS ORDERED: ANUSOL HC CREAM 30GM TOP PRN (04:20)
[2021-06-20] MEDS ORDERED: OXYTOCIN DRIP 30 UNITS in IV 1 EA IV ONE (04:20)
[2021-06-20] MEDS ORDERED: METHYLERGONOVINE MALEATE 0.2 MG TAB PO PRN (04:20)
[2021-06-20] MEDS ORDERED: ACETAMINOPHEN TAB 650MG DOSE (2X325MG) PO PRN (04:20)
[2021-06-20] MEDS ORDERED: DOCUSATE SODIUM 100MG CAPSULE PO PRN (04:20)
[2021-06-20] MEDS ORDERED: MOM 30ML SUSPENSION UDC PO PRN (04:20)
[2021-06-20 04:28] LABS: CORD GAS ABE V -3.5; CORD GAS HCO3 V 21.7 MEQ/L; CORD GAS PCO2 V 40.1 mmHg; CORD GAS PH V 7.352 UNITS; CORD GAS PO2 V 28.6 mmHg; CORD GAS SBC V 20.9 MEQ/L
[2021-06-20] MEDS: LR 1,000 ML IV SCH ×2 (04:30→15:03)
[2021-06-20 04:34] LABS: CORD GAS ABE A -5.3; CORD GAS HCO3 A 21.7 MEQ/L; CORD GAS O2 SAT A 43.4 %; CORD GAS PCO2 A 47.4 mmHg; CORD GAS PH A 7.279 UNITS; CORD GAS SBC A 18.9 MEQ/L; CORD GAS TCO2 A 23.2 MEQ/L
[2021-06-20] MEDS: MAG Sulf (OBGYN) 20GM/500ML 20,000 MG in IV 1 EA IV SCH ×2 (06:41→15:03)
--- NOTE | 2021-06-20 07:51 | DN ---
DELIVERY NOTE DATE OF DELIVERY: 06/20/2021 TIME OF : GENDER: APGARS: LACERATIONS: NONE ANESTHESIA: EPIDURAL ESTIMATED BLOOD LOSS: 200 ML COUNTS: CORRECT DESCRIPTION OF DELIVERY: This lady is a 20-year-old 1, now para 1 who was admitted in active labor at term. Throughout her laboring here, her blood pressures intermittently were in the mid-range to high-range blood pressures to severe-range blood pressures. She had multiple examinations indicating that here reflexes were normal, eyegrounds were normal; no right upper quadrant pain, no edema, and no visual disturbances. Despite that, she had intermittent labetalol IV push as per protocol. She did have an epidural in place and at full dilatation had a spontaneous vaginal delivery of a female weighing 7 pounds 9 ounces (3430 grams), scores of 8 and 9 at one and five minutes respectively; had terminal meconium. Arterial pH's are not available. Placenta delivered spontaneously thereafter; three vessels, and the cord, membranes and tissues intact. The anterior, posterior and lateral amaya were complete. The uterus contracted well down on Pitocin. Sphincter was tight. Post delivery, her blood pressures were in the severe-range blood pressures again, asymptomatic. 40 mg of labetalol were pushed IV. The patient was started on 4 grams of magnesium to be followed by 2 grams an hour and monitoring intake and output on an hourly basis. In summary, we have a term gestation with intermittent severe-range blood pressures monitored and treated as if she is preeclamptic. Her protein/creatinine ratio is 0.126. The rest of her preeclamptic profile was normal. [facility]
[2021-06-20] MEDS: PRENATAL VITAMINS CHEWABLE TABLET PO SCH (09:21)
[2021-06-20] MEDS: ACETAMINOPHEN 500 MG TAB PO PRN ×2 (09:22→16:17)
[2021-06-20 10:57] LABS: HEMATOCRIT 29.5 % (36.0-47.0); HEMOGLOBIN 9.3 g/dl (12.0-15.5); MEAN CORPUSCULAR HEMOGLOBIN 26.1 pg (27.0-33.0); MEAN CORPUSCULAR HGB CONC 31.5 g/dl (32.0-36.5); MEAN CORPUSCULAR VOLUME 82.6 fl (80.0-96.0); PLATELET COUNT, AUTOMATED 195 10^3/uL (150-450); RED BLOOD COUNT 3.57 10^6/uL (4.00-5.40)
[2021-06-20 11:31] LABS: ALBUMIN 2.6 GM/DL (3.2-5.2); ALT/SGPT 8 U/L (12-78); BILIRUBIN,TOTAL 0.4 MG/DL (0.2-1.0); BLOOD UREA NITROGEN 4 MG/DL (7-18); CALCIUM LEVEL 7.7 MG/DL (8.5-10.1); CARBON DIOXIDE LEVEL 25 MEQ/L (21-32); CHLORIDE LEVEL 109 MEQ/L (98-107); CREATININE FOR GFR 0.48 MG/DL (0.55-1.30); GLUCOSE, FASTING 79 MG/DL (70-100); POTASSIUM SERUM 3.8 MEQ/L (3.5-5.1); SODIUM LEVEL 139 MEQ/L (136-145); TOTAL PROTEIN 5.8 GM/DL (6.4-8.2)
[2021-06-20] MEDS: IBUPROFEN 600MG TAB PO PRN (20:45)
[2021-06-21] VITALS (7 sets, daily range): BP systolic 123–156; BP diastolic 65–92
[2021-06-21] MEDS: MAG Sulf (OBGYN) 20GM/500ML 20,000 MG in IV 1 EA IV SCH (01:35)
[2021-06-21] MEDS: ACETAMINOPHEN 500 MG TAB PO PRN (03:53)
--- NOTE | 2021-06-21 06:19 | IPNPDOC ---
Progress Note Date of Service: Jun 21, 2021 Progress Note SUBJECT: Amanda Anna is a 20-year-old 1 now Para 1001 status post uncomplicated spontaneous vaginal delivery at -/7 weeks' at approximately 0347 hours on [id number] of a female 7 pounds 9 ounces (3430 grams) doing well day # 1. She has not yet ambulated, lui is in place and tolerating regular diet. Breast feeding without issue. Reports lochia is small. Patient is ambulating well. She had unexplained systolics in the 200s during labor and delivery, treated with IV labetalol. She received 24 hours post magnesium which was just recently turned off. She denies headaches, vision changes, chest pain, shortness of breath, right upper quadrant/epigastric pain. States she feels well. OBJECTIVE: VITAL SIGNS: Within normal limits, afebrile. Alert and oriented times three. Breath sounds clear to auscultation. Heart rate: Regular rate and rhythm, no murmurs, rubs or gallops. Abdomen: Fundus firm at U-2. Soft, NTTP. Negative calf tenderness bilaterally. ASSESSMENT: As above doing well on day 1. Vitals within normal limits, afebrile, hemodynamically stable with no evidence of infection. No evidence of preeclampsia. PLAN: 1. Discharge to home tomorrow likely (24 hours after magnesium shut-off.) 2. Tylenol and Motrin for pain. 3. Encourage breast feeding and ambulation. 4. undecided for contraception 5. Return in one week for blood pressure check. Routine PP visit in 6 weeks in clinic. VS, I&O, 24H, Roberto Vital Signs/I&O Vital Signs Date Time Temp Pulse Resp B/P (MAP) Pulse Ox O2 Delivery O2 Flow Rate FiO2 06/21/21 03:00 97.6 68 17 128/70 (89) 98 Room Air I&O- Last 24 Hours up to 6 AM 06/21/21 06:00 Intake Total 3813 ml Output Total 5000 ml Balance -1187 ml Laboratory Data 24H LABS Laboratory Tests 2 06/20/21 10:48: Nucleated Red Blood Cells % (auto) 0.0, Anion Gap 5L, Calcium Level 7.7L, Magnesium Level 4.2H, Total Bilirubin 0.4, Aspartate Amino Transf (AST/SGOT) 20, Alanine Aminotransferase (ALT/SGPT) 8L, Alkaline Phosphatase 130H, Total Protein 5.8L, Albumin 2.6L, Albumin/Globulin Ratio 0.8L CBC/BMP Laboratory Tests 06/20/21 10:48 ALDO TIDWELL DO Jun 21, 2021 06:19
[2021-06-21 09:16] LABS: HEMOGLOBIN 8.4 g/dl (12.0-15.5); MEAN CORPUSCULAR HEMOGLOBIN 25.8 pg (27.0-33.0); MEAN CORPUSCULAR HGB CONC 31.1 g/dl (32.0-36.5); MEAN CORPUSCULAR VOLUME 82.8 fl (80.0-96.0); PLATELET COUNT, AUTOMATED 203 10^3/uL (150-450); RED BLOOD COUNT 3.26 10^6/uL (4.00-5.40); WHITE BLOOD COUNT 9.1 10^3/uL (4.0-10.0)
[2021-06-21] MEDS: PRENATAL VITAMINS CHEWABLE TABLET PO SCH (10:27)
[2021-06-21] MEDS: IBUPROFEN 600MG TAB PO PRN (15:44)
--- NOTE | 2021-06-21 21:23 | ECGEPIP ---
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
[2021-06-22 02:25] VITALS: BP 136/72
[2021-06-22 06:16] VITALS: BP 136/70
[2021-06-22] MEDS ORDERED: DOCU100C16 PO (06:55)
[2021-06-22] MEDS ORDERED: PRENCHW PO (06:55)
[2021-06-22] MEDS ORDERED: IBUP-1022 PO (06:55)
[2021-06-22] MEDS: PRENATAL VITAMINS CHEWABLE TABLET PO SCH (07:36)
--- NOTE | 2021-06-22 08:41 | DSES ---
DISCHARGE SUMMARY DATE OF ADMISSION: 06/19/2021 DATE OF DISCHARGE: 06/22/2021 BRIEF HISTORY: This lady is a 20-year-old 1, now para 1, who was admitted in active labor at term, had an epidural in place, spontaneous vaginal delivery, female infant, 7 pounds 9 ounces (3430 grams), Apgars of 8 and 9 at one and five minutes respectively, terminal meconium was noted. Arterial pH 7.27, base excess -5.3, venous pH 7.35, base excess -3.5. She developed elevated severe range blood pressures after delivery and during her epidural. So she was placed on magnesium sulfate for 24 hours. Her blood pressures resolved. She became normotensive and presently continues to be normotensive. Admitting hemoglobin 9.8, hematocrit 31.2 and platelets were 224,000. Discharge hemoglobin 8.4, hematocrit 27.0 and platelets were 203,000. Vitals on discharge: Blood pressure 136/70, respirations 18, pulse 67, temperature 98.6. We discussed phlebitis, cystitis, mastitis, endometritis and cellulitis, diet, exercise, pain management, and perineal, breast and wound care. On discharge, she was normocephalic, atraumatic. Neck full range of motion. Pupils equal and reactive to light. Distal pulses are symmetric. No evidence of DVT, PE or superficial phlebitis. Chest is clear bilaterally to bases, no wheezes or rhonchi. No CVA tenderness. Abdomen is soft, four quadrant bowel sounds are noted. Uterus two below, lochia is moderate. No nausea, vomiting, diarrhea, or constipation. No urgency or frequency. She occasionally gets very anxious, has a bit of chest pain especially when she is , she gets very anxious during the formative period. EKG was normal. Respirations normal. Pulse ox was normal. Therefore, we attribute this to her anxiety being a first-time mother. In summary, we have term gestation, delivered a live female infant. Plans are to have her have a one-week blood pressure check at [facility], and six-week check. All questions were answered; 20 minute discussion. The patient was discharged improved.
[2021-06-22 10:00] VITALS: BP 131/61
== END 2021-06-22 13:00 | disposition home or self-care (01) | DRG 807 ==
LOC: M LDO 22:54 → M LDI 23:25 → M OBS 06-20 13:45
PROVIDERS: ADMIT Obstetrics & Gynecology; ATTEND Obstetrics & Gynecology
PROC: 10E0XZZ Delivery of Products of Conception, External Approach (ICD-10-PCS; principal; 2021-06-20)
DX: O99.824 Streptococcus B carrier state complicating childbirth (principal); Z37.0 Single live birth; Z3A.40 40 weeks gestation of pregnancy; O77.0 Labor and delivery complicated by meconium in amniotic fluid; O16.5 Unspecified maternal hypertension, complicating the puerperium

== ENCOUNTER 2021-10-05 09:48 | Emergency (ER) | payer OTHER ==
[~2021-10-05] VITALS: Ht 162.6 cm; Wt 74.9 kg
[~2021-10-05 09:48] MED LIST changes: +DOCU100C16 PO; +IBUP-1022 PO; +PRENCHW PO
[2021-10-05] MEDS ORDERED: CEPH500C PO (11:44)
[2021-10-05] MEDS ORDERED: PRED20TA PO (11:44)
[2021-10-05 11:52] VITALS: BP 123/78
== END 2021-10-05 11:54 | disposition home or self-care (01) ==
LOC: M ED 09:48
DX: L66.2 Folliculitis decalvans (principal); L30.9 Dermatitis, unspecified

== ENCOUNTER 2021-10-24 17:04 | Emergency (ER) | payer OTHER ==
[~2021-10-24] VITALS: Ht 162.6 cm; Wt 77.3 kg
[2021-10-24 17:04] VITALS: BP 145/77
[~2021-10-24 17:04] MED LIST changes: +CEPH500C PO; +PRED20TA PO
== END 2021-10-24 20:55 | disposition left against medical advice (07) ==
LOC: M ED 17:04
DX: Z53.21 Procedure and treatment not carried out due to patient leaving prior to being seen by health care provider (principal)

== ENCOUNTER 2021-12-11 14:16 | Emergency (ER) | payer OTHER ==
[~2021-12-11] VITALS: Ht 162.6 cm; Wt 72.3 kg
[2021-12-11 16:02] LABS: URINE PREG TEST NEGATIVE (NEGATIVE)
[2021-12-11 16:23] LABS: GC DNA AMPLIFICATION NEGATIVE (NEGATIVE)
[2021-12-11] MEDS ORDERED: MACR100C43 PO (17:26)
[2021-12-11] MEDS ORDERED: NITROFURANTOIN (MACROBID) 100 MG CAP PO ONE (17:30)
[2021-12-11 17:40] VITALS: BP 134/80
[2021-12-11 17:49] LABS: GC DNA AMPLIFICATION NEGATIVE (NEGATIVE)
== END 2021-12-11 17:41 | disposition home or self-care (01) ==
LOC: M ED 14:16
DX: N39.0 Urinary tract infection, site not specified (principal); J02.9 Acute pharyngitis, unspecified

== ENCOUNTER 2021-12-13 08:44 | Emergency (ER) | payer OTHER ==
[~2021-12-13] VITALS: Ht 162.6 cm; Wt 74.7 kg
[2021-12-13] MEDS ORDERED: CEFD300C41 PO (11:07)
[2021-12-13] MEDS ORDERED: CEFDINIR 300 MG CAP (OMNICEF) PO ONE (11:10)
[2021-12-13 11:33] VITALS: BP 117/64
== END 2021-12-13 11:34 | disposition home or self-care (01) ==
LOC: M ED 08:44
DX: J02.9 Acute pharyngitis, unspecified (principal); N39.0 Urinary tract infection, site not specified

== ENCOUNTER 2022-04-30 14:42 | Emergency (ER) | payer OTHER ==
[~2022-04-30] VITALS: Ht 162.6 cm; Wt 73.6 kg
[2022-04-30 14:42] VITALS: BP 134/91
[~2022-04-30 14:42] MED LIST changes: +CEFD300C41 PO
== END 2022-04-30 15:51 | disposition home or self-care (01) ==
LOC: M ED 14:42
DX: Z20.2 Contact with and (suspected) exposure to infections with a predominantly sexual mode of transmission (principal)

== ENCOUNTER 2022-05-02 07:24 | Emergency (ER) | payer OTHER ==
[~2022-05-02] VITALS: Ht 162.6 cm; Wt 73.0 kg
[2022-05-02 08:27] LABS: APPEARANCE, URINE MANUAL HAZY (CLEAR); COLOR, URINE MANUAL YELLOW (YELLOW)
[2022-05-02 08:28] LABS: BILIRUBIN, URINE MANUAL NEGATIVE (NEGATIVE); GLUCOSE, URINE (UA) MANUAL NEGATIVE (NEGATIVE); KETONE, URINE MANUAL NEGATIVE (NEGATIVE); LEUKOCYTE ESTERASE, URINE MAN POSITIVE (NEGATIVE); NITRITE, URINE MANUAL NEGATIVE (NEGATIVE); PROTEIN, URINE MANUAL NEGATIVE (NEGATIVE); UROBILINOGEN, URINE MANUAL NORMAL (NORMAL)
[2022-05-02] MEDS ORDERED: VALT500T PO (08:40)
[2022-05-02 08:47] LABS: BLOOD URINE MANUAL NEGATIVE (NEGATIVE)
[2022-05-02 08:48] LABS: BACTERIA, URINE SMALL AMOUNT; HYALINE CAST, URINE NONE SEEN /lpf (0-1); RBC, URINE NONE SEEN /hpf (0-3)
[2022-05-02 08:49] LABS: AMORPHOUS SEDIMENT, URINE SMALL AMOUNT (NEGATIVE); MUCUS, URINE MOD AMOUNT (NEGATIVE); SQUAMOUS EPITHELIAL CELL URINE MOD AMOUNT /hpf (SMALL AMT)
[2022-05-02 08:54] VITALS: BP 149/86
[2022-05-02 10:43] LABS: GC DNA AMPLIFICATION NEGATIVE (NEGATIVE)
== END 2022-05-02 09:00 | disposition home or self-care (01) ==
LOC: M ED 07:24
DX: A60.04 Herpesviral vulvovaginitis (principal)